=== PATIENT | female | born 1985 | race Two or more races ===

== ENCOUNTER 2019-04-07 22:05 | Inpatient (IN) | payer OTHER ==
[~2019-04-07] VITALS: Ht 152.4 cm; Wt 68.0 kg
[~2019-04-07 22:05] MED LIST changes: -FOLIC ACID0.4 MG PO; -FOLIC ACID1 MG PO; -PRENATAL TABLE1 EAC1 PO; -PRENATAL TABLE1 EACH PO
[2019-04-07] MEDS ORDERED: PRENATAL TABLE1 EAC1 PO (23:11)
[2019-04-07] MEDS ORDERED: FOLIC ACID0.4 MG PO (23:11)
[2019-04-08] MEDS ORDERED: PRENATAL TABLE1 EACH PO (16:29)
[2019-04-08] MEDS ORDERED: FOLIC ACID1 MG PO (16:30)
== END 2019-04-09 10:19 | disposition home or self-care (01) | DRG 833 ==
LOC: OBS/DEL 22:05 → LDR 04-08 10:25
PROVIDERS: ADMIT Obstetrics & Gynecology
PROC: 4A1HXCZ Monitoring of Products of Conception, Cardiac Rate, External Approach (ICD-10-PCS; principal; 2019-04-08)
DX: O26.892 Other specified pregnancy related conditions, second trimester (principal); K52.89 Other specified noninfective gastroenteritis and colitis; Z34.82 Encounter for supervision of other normal pregnancy, second trimester

== ENCOUNTER → 2019-04-07 | Emergency (ER) | payer OTHER ==
[~2019-04-07] VITALS: Ht 152.4 cm; Wt 95.3 kg
[~2019-04-07] MED LIST: FOLIC ACID0.4 MG PO; FOLIC ACID1 MG PO; PRENATAL CAPLE1 EACH PO; PRENATAL TABLE1 EAC1 PO; PRENATAL TABLE1 EACH PO; ZOFRAN8 MG
== END | disposition still patient (30) ==
LOC: ER 20:37
DX: O26.892 Other specified pregnancy related conditions, second trimester (principal); K52.9 Noninfective gastroenteritis and colitis, unspecified; O34.82 Maternal care for other abnormalities of pelvic organs, second trimester; Z34.02 Encounter for supervision of normal first pregnancy, second trimester

== ENCOUNTER 2019-06-18 11:03 | Inpatient (IN) | payer OTHER ==
[~2019-06-18] VITALS: Ht 152.4 cm; Wt 74.8 kg
[~2019-06-18 11:03] MED LIST changes: +FOLIC ACID0.4 MG PO; +FOLIC ACID1 MG PO; +PRENATAL TABLE1 EAC1 PO; +PRENATAL TABLE1 EACH PO
== END 2019-07-11 11:40 | disposition home or self-care (01) | DRG 807 ==
LOC: LDR 07-09 02:54 → SURG-SUITE 07-09 02:54 → OB/GYN 07-13 13:30
PROVIDERS: ADMIT Obstetrics & Gynecology
PROC: 10E0XZZ Delivery of Products of Conception, External Approach (ICD-10-PCS; principal; 2019-07-09)
PROC: 4A1HXCZ Monitoring of Products of Conception, Cardiac Rate, External Approach (ICD-10-PCS; 2019-07-09)
PROC: 4A033R1 Measurement of Arterial Saturation, Peripheral, Percutaneous Approach (ICD-10-PCS; 2019-07-09)
DX: O80 Encounter for full-term uncomplicated delivery (principal); Z37.0 Single live birth; Z3A.39 39 weeks gestation of pregnancy; Z22.330 Carrier of Group B streptococcus

== ENCOUNTER 2022-04-09 14:37 | Emergency (ER) | payer OTHER ==
[~2022-04-09] VITALS: Ht 152.4 cm; Wt 62.6 kg
[2022-04-09] MEDS ORDERED: PEPCID AC20 MG PO (19:25)
== END 2022-04-09 19:55 | disposition home or self-care (01) ==
LOC: ER 14:37
DX: O99.611 Diseases of the digestive system complicating pregnancy, first trimester (principal); K92.89 Other specified diseases of the digestive system; Z3A.12 12 weeks gestation of pregnancy; K52.9 Noninfective gastroenteritis and colitis, unspecified; Z91.048 Other nonmedicinal substance allergy status

== ENCOUNTER 2022-10-09 10:47 | Inpatient (IN) | payer OTHER ==
[~2022-10-09] VITALS: Ht 152.4 cm; Wt 76.7 kg
[~2022-10-09 10:47] MED LIST changes: +PEPCID AC20 MG PO
== END 2022-10-11 12:06 | disposition home or self-care (01) | DRG 807 ==
LOC: LDR 10:47 → OB/GYN 17:02
PROVIDERS: ADMIT Obstetrics & Gynecology; ATTEND Obstetrics & Gynecology
PROC: 10E0XZZ Delivery of Products of Conception, External Approach (ICD-10-PCS; principal; 2022-10-09)
PROC: 0KQM0ZZ Repair Perineum Muscle, Open Approach (ICD-10-PCS; 2022-10-09)
PROC: 4A1HXCZ Monitoring of Products of Conception, Cardiac Rate, External Approach (ICD-10-PCS; 2022-10-09)
DX: O70.1 Second degree perineal laceration during delivery (principal); Z37.0 Single live birth; Z3A.38 38 weeks gestation of pregnancy; Z20.822 Contact with and (suspected) exposure to COVID-19